=== PATIENT | male | born 1965 | race Caucasian/White ===

== ENCOUNTER 2017-01-15 12:21 | Emergency (ER) | payer OTHER ==
[2017-01-15 12:43] LABS: #Eosinphils 0.2 thou/uL (0.0-0.7); #Lymphocytes 2.1 thou/uL (1.20-3.40); #Monocytes 0.5 thou/uL (0.11-0.59); #Neutrophils 4.6 thou/uL (1.40-6.50); %Eosinophils 2.2 % (0.0-10.0); %Monocytes 6.6 % (0.0-10.0); Hematocrit 45.4 % (42.0-52.0); Mean Platelet Volume 7.3 fL (7.4-10.4); Red Blood Cell (RBC) Count 5.17 mill/uL (4.70-6.10); White Blood Cell (WBC) Count 7.4 thou/uL (4.8-10.8)
[2017-01-15 12:51] LABS: Prothrombin Time 13.2 SEC (12.0-14.7)
[2017-01-15 12:52] LABS: PTT 27.5 SEC (22.9-36.1)
[2017-01-15 13:06] LABS: ALT (SGPT) 13 U/L (8-55); AST (SGOT) 17 U/L (5-34); Alkaline Phosphatase 101 U/L (40-150); Anion Gap 11 mmol/L (10-20); BUN (Urea Nitrogen) 15 mg/dL (8.9-20.6); Bilirubin, Total 0.5 mg/dL (0.2-1.2); CK (CPK) 82 U/L (30-200); Calc. Creatinine Clearance 0 mL/min (70-130); Calcium 8.7 mg/dL (7.8-10.44); Carbon Dioxide 26 mmol/L (22-29); Chloride 104 mmol/L (98-107); Estimated GFR-MDRD 73
[2017-01-15 13:10] LABS: Troponin I 0.024 ng/mL (< 0.028)
--- NOTE | 2017-01-15 13:57 | RAD ---
ONE VIEW CHEST: HISTORY: Chest pain. Right shoulder pain. Dizziness. COMPARISON: None. FINDINGS: Portable upright chest shows a normal cardiac silhouette. The pulmonary vessels and hilum are normal . No consolidation or mass. No pneumothorax or osseous abnormalities. IMPRESSION: No acute cardiopulmonary process. POS: H
== END 2017-01-15 16:11 | disposition home or self-care (01) ==
LOC: ERS 12:21
DX: I45.6 Pre-excitation syndrome (principal); E66.9 Obesity, unspecified; F41.9 Anxiety disorder, unspecified; F31.9 Bipolar disorder, unspecified; F20.9 Schizophrenia, unspecified
CPT/HCPCS: 36416; 71010; 80053; 82550; 82553; 84484; 85025; 85610; 85730; 93005; 94760; J0282